=== PATIENT | female | born 1990 | race Caucasian/White ===

== ENCOUNTER 2017-11-07 14:34 | Emergency (ER) | payer BC, OTHER ==
[2017-11-07 15:18] LABS: #Basophils 0.1 thou/uL (0.0-0.2); #Eosinphils 0.2 thou/uL (0.0-0.7); #Lymphocytes 2.1 thou/uL (1.20-3.40); #Monocytes 0.4 thou/uL (0.11-0.59); #Neutrophils 4.8 thou/uL (1.40-6.50); %Basophils 1.3 % (0.0-1.0); %Eosinophils 2.5 % (0.0-10.0); %Lymphocytes 27.4 % (21.0-51.0); %Monocytes 5.2 % (0.0-10.0); %Neutrophils 63.6 % (42.0-75.0); Hemoglobin 13.9 g/dL (12.0-16.0); Mean Corpuscular HGB CONC 33.5 g/dL (32.0-36.0); Mean Corpuscular Hemoglobin 31.5 pg (27.0-31.0); Mean Corpuscular Volume 94.1 fl (81.0-99.0); Mean Platelet Volume 7.5 fL (7.4-10.4); Platelet Count 316 thou/uL (130-400); RBC Distribution Width 11.4 % (11.5-14.5); Red Blood Cell (RBC) Count 4.41 mill/uL (4.20-5.40); White Blood Cell (WBC) Count 7.5 thou/uL (4.8-10.8)
[2017-11-07 15:39] LABS: ALT (SGPT) 9 U/L (8-55); AST (SGOT) 16 U/L (5-34); Albumin 4.2 g/dL (3.5-5.0); Alkaline Phosphatase 55 U/L (40-150); Anion Gap 11 mmol/L (10-20); BUN (Urea Nitrogen) 9 mg/dL (7.0-18.7); Bilirubin, Total 0.4 mg/dL (0.2-1.2); Calc. Creatinine Clearance 0 mL/min (70-130); Calcium 9.5 mg/dL (7.8-10.44); Carbon Dioxide 26 mmol/L (22-29); Chloride 105 mmol/L (98-107); Estimated GFR-MDRD 85; Globulin 2.9 g/dL (2.4-3.5); Glucose 99 mg/dL (70-105); Potassium 4.3 mmol/L (3.5-5.1); Protein, Total 7.1 g/dL (6.0-8.3); Sodium 138 mmol/L (136-145)
--- NOTE | 2017-11-07 18:49 | ULT ---
LEFT LOWER EXTREMITY VENOUS DUPLEX: Technique: Ultrasound doppler study is performed in the veins of the left lower extremity. Color dopp ler, spectral analysis, and compression study is performed on the common femoral, profunda femoral, s uperficial femoral, popliteal, greater saphenous and posterior tibial veins. History: Left lower extremity pain and edema. Pain worse in the calf. FINDINGS: Deep veins show normal compression and blood flow. No evidence of DVT. IMPRESSION: No evidence of left lower extremity DVT. POS: ABEBA
--- NOTE | 2017-11-07 20:09 | CT ---
CT SCAN LEFT LOWER EXTREMITY: Technique: Multiple axial tomograms were obtained through the left lower extremity from knee to dista l tibia and fibula with multiplanar reconstruction. Exam was performed without IV contrast. History: Left calf pain and swelling. Question foreign body. FINDINGS: No evidence of soft tissue radiopaque foreign body identified. There is stranding and abnormal densit y in the subcutaneous tissues of the lateral mid-calf region which is the site of patient's pain. Thi s could represent inflammatory process or infection. No evidence of focal abscess or fluid collection . No osseous abnormality identified. IMPRESSION: Inflammatory stranding and low attenuation in the subcutaneous adipose tissue lateral midcalf region may represent inflammatory process. No abscess. No evidence of foreign body identified. POS: ABEBA
== END 2017-11-07 19:30 | disposition home or self-care (01) ==
LOC: ERS 14:34
DX: L08.9 Local infection of the skin and subcutaneous tissue, unspecified (principal); M79.662 Pain in left lower leg; F41.9 Anxiety disorder, unspecified; F32.9 Major depressive disorder, single episode, unspecified
CPT/HCPCS: 36415; 80053; 85025; 85652; 86140

== ENCOUNTER 2019-11-26 07:25 | Inpatient (IN) | payer OTHER ==
[2019-11-29] MEDS ORDERED: Bupivacaine PF 0.5% 30 ML VIAL ONE (14:28)
[2019-11-29 19:57] VITALS: BMI 18.2
[2019-11-29] MEDS ORDERED: Acetaminophen 500 MG TAB PO PRN (20:41)
[2019-11-29] MEDS ORDERED: Promethazine HCl 25 MG/ML VIAL IM PRN (20:41)
[2019-11-29] MEDS ORDERED: Ibuprofen 800 MG TAB PO PRN (20:41)
[2019-11-29] MEDS ORDERED: Diphenoxylate HCl/Atropine Tablet PO PRN (20:41)
[2019-11-29] MEDS ORDERED: Lidocaine 1% (PF) 30 ML VIAL SC PRN (20:41)
[2019-11-29] MEDS ORDERED: Methylergonovine 0.2 MG/ML VIAL IM PRN (20:41)
[2019-11-29] MEDS ORDERED: NS / Oxytocin 40 units/1000ml 1,000 ML IV PRN (20:41)
[2019-11-29] MEDS ORDERED: HYDROcodone/Acetaminophen 5/325 mg Tablet PO PRN (20:41)
[2019-11-29] MEDS ORDERED: Carboprost 250 MCG/ML AMP IM PRN (20:41)
[2019-11-29] MEDS ORDERED: Ondansetron PF 4 MG/2 ML Vial IVP PRN (20:41)
[2019-11-29] MEDS ORDERED: Zolpidem Tartrate 5 MG TAB PO PRN (20:41)
[2019-11-29] MEDS ORDERED: hydrALAZINE 20 MG/ML VIAL SLOW IVP PRN (20:41)
[2019-11-29] MEDS ORDERED: Misoprostol 200 MCG TAB PR PRN (20:41)
[2019-11-29 21:07] LABS: Hemoglobin 12.8 g/dL (12.0-16.0); Mean Corpuscular HGB CONC 35.3 g/dL (32.0-36.0); Mean Corpuscular Volume 90.7 fL (78.0-98.0); Mean Platelet Volume 8.2 fL (7.4-10.4); Platelet Count 290 thou/uL (130-400); RBC Distribution Width 11.9 % (11.5-14.5); Red Blood Cell (RBC) Count 4.01 mill/uL (4.20-5.40); White Blood Cell (WBC) Count 10.7 thou/uL (4.8-10.8)
[2019-11-29 21:43] LABS: Syphilis Antibody Nonreactive (Nonreactive); Syphilis Antibody Index 0.04 S/CO (<1.00 Non-Reactive)
[2019-11-29 23:20] LABS: HBSAg Index 0.24 S/CO (0-0.99); Hep B Surf Ag Non-Reactive S/CO (NonReactive)
--- NOTE | 2019-11-30 08:15 | PDOC.LDHP ---
Labor and Delivery H&P Chief complaint: scheduled induction HPI: 29yo at 40w4d by LMP here for elective IOL. Had cook balloon in overnight. Current gestational age (weeks): 40 Due date: 11/26/19 Dating criteria: last menstrual period Grav: 1 Para: 0 Current complications: none Abnormal US findings: No Past Medical History: denies Current medications: pre-katherine vitamins Previous surgical history: appendectomy Allergies/Adverse Reactions: Allergies Allergy/AdvReac Type Severity Reaction Status Date / Time No Known Allergies Allergy Verified 11/29/19 19:48 Social history: none - Physical Exam Vital signs reviewed and normal: yes General: NAD Heart: RRR Lungs: CTAB Abdomen: gravid Extremeties: no edema FHT: category 1 [place] contractions every: 3-5min - Vaginal Exam cm dilated: 6 Effacement: 75% Station: -2 (cook balloon outm arom clear) - OB Labs Blood type: A RH: positive Antibody Screen: negative HIV: negative RPR: negative HEPSAg: negative 1 hour GCT: negative GBS: negative Urine drug screen: negative Rubella: immune - Assessment L&D Assessment: elective induction at term - Plan Plan: admit to L&D, cervical ripening (s/p cook), labor augmentation if indicated, informed consent obtained, anesthesia consult for pain management ( prn)
--- NOTE | 2019-11-30 13:28 | PDOC.LDPN ---
Labor & Delivery Progress Note - Subjective Subjective: painful contractions - Objective Vital signs reviewed and normal: yes General: NAD, breathing through contractions Uterine fundus: non tender Dilation: 6 Effacement: 75% Station: -2 FHT: category 1 [place] contractions every: 2-3min Plan: continue plan of care -: pt desires more time to go into labor without pitocin, will recheck SVE in 2-3 hours
[2019-11-30] MEDS ORDERED: NS w/ Oxytocin 10 units 500 ML ONE (17:29)
[2019-11-30] MEDS ORDERED: Butorphanol Tartrate 1 MG/ML VIAL ONE (17:29)
--- NOTE | 2019-11-30 18:33 | PDOC.LDPN ---
Labor & Delivery Progress Note - Subjective Subjective: painful contractions, vaginal pressure - Objective Vital signs reviewed and normal: yes General: NAD Uterine fundus: non tender Dilation: 7 Effacement: 75% Station: -1 FHT: category 1 [place] contractions every: 3-5min -: Rec pitocin and or epidural. Pt agreeable to pitocin since not changing significantly.
[2019-11-30] MEDS ORDERED: Fentanyl 4 mcg/Bup 0.1% Cadd 100 ML ONE (19:11)
[2019-11-30] MEDS ORDERED: Promethazine HCl 25 MG/ML VIAL IM PRN (20:03)
[2019-11-30] MEDS ORDERED: Naloxone HCl 0.4 mg/ml Vial IVP PRN ×2 (20:03)
[2019-11-30] MEDS ORDERED: Ondansetron PF 4 MG/2 ML Vial IVP PRN (20:03)
[2019-11-30] MEDS ORDERED: EPHEDRINE 25 MG/5 ML SYRINGE SLOW IVP PRN (20:03)
[2019-11-30] MEDS ORDERED: Lactated Ringer's 500 ML IV PRN (20:03)
[2019-11-30] MEDS ORDERED: diphenhydrAMINE 50 MG/ML VIAL IVP PRN (20:03)
[2019-11-30] MEDS ORDERED: Acetaminophen 325 MG TAB PO PRN (20:03)
[2019-11-30] MEDS ORDERED: Communication Order-Pharmacy FS SCH (20:15)
[2019-11-30] MEDS ORDERED: Fentanyl 4 mcg/Bupivacaine 0.1% Cassette 100 ML EPIDURAL SCH (20:15)
[2019-11-30] MEDS: NS / Oxytocin 40 units/1000ml 1,000 ML ONE (23:50)
--- NOTE | 2019-12-01 00:07 | PDOC.OPDEL ---
OB Operative/Delivery Note Delivery Dr/Surgeon: Brittney Assist: n/a Pre-Delivery Diagnosis: elective induction Procedure/Post Delivery Dx: spontaneous vaginal delivery Weeks gestation: 40 Anesthesia: epidural - Findings A Sex: female Weight: 6 lb 11 oz - 1 min: 6 - 5 min: 7 - Additional Findings/Plan Placenta delivered: spontaneous Repaired Obstetrical Laceration: 1st degree Estimated blood loss: 300 Post delivery plan: routine recovery
[2019-12-01] MEDS ORDERED: Milk Of Magnesia 30 ML UDCUP PO PRN (01:55)
[2019-12-01] MEDS ORDERED: Ondansetron PF 4 MG/2 ML Vial IVP PRN (01:55)
[2019-12-01] MEDS ORDERED: Benzocaine-Menthol 82.5 ML CAN TOP PRN (01:55)
[2019-12-01] MEDS ORDERED: Lanolin Ointment 7 GM TUBE TOP PRN (01:55)
[2019-12-01] MEDS ORDERED: hydrALAZINE 20 MG/ML VIAL SLOW IVP PRN (01:55)
[2019-12-01] MEDS ORDERED: diphenhydrAMINE 25 MG CAP PO PRN (01:55)
[2019-12-01] MEDS ORDERED: Promethazine HCl 25 MG/ML VIAL IM PRN (01:55)
[2019-12-01] MEDS ORDERED: HYDROcodone/Acetaminophen 5/325 mg Tablet PO PRN ×2 (01:55)
[2019-12-01] MEDS ORDERED: Bisacodyl 10 MG SUPP PR PRN (01:55)
[2019-12-01] MEDS ORDERED: Preparation H Ointment 57 gram tube RC PRN (01:55)
[2019-12-01] MEDS ORDERED: NS / Oxytocin 40 units/1000ml 1,000 ML IV SCH (01:55)
[2019-12-01] MEDS: NS / Oxytocin 40 units/1000ml 1,000 ML ONE (01:56)
[2019-12-01] MEDS: Ibuprofen 800 MG TAB PO SCH ×3 (05:42→21:14)
--- NOTE | 2019-12-01 07:40 | PDOC.PP ---
Post Progress Note Post Day #: 1 Subjective: Patient doing well. No significant overnight events. Patient states lochia less than period currently. She reports feeling tired, but otherwise doing well. PO intake tolerated: yes Flatus: yes Ambulation: yes Vital Signs (12 hours) Temp Pulse Resp BP Pulse Ox 12/01/19 04:11 98.8 F 87 14 131/66 98 12/01/19 03:00 98.7 F 81 14 123/61 99 Weight Weight 54.431 kg - Physical Examination General: NAD Cardiovascular: RRR Respiratory: non-labored breathing Abdominal: + bowel sounds, lochia (little less than period), no distention, appropriately TTP Fundus firm & at: below umbilicus Skin: no rash Neurological: no gross focal deficits Psychiatric: A&Ox3, normal affect Result Diagrams: 11/29/19 20:44 Additional Labs: Post Labs Blood Type A POSITIVE 11/29/19 21:28 Hep Bs Antigen Non-Reactive S/CO (NonReactive) 11/29/19 20:44 (1) Term delivered Code(s): O80 - ENCOUNTER FOR FULL-TERM UNCOMPLICATED DELIVERY Status: Acute - Assessment/Plan Routine PP care - PP day #1 s/p - Meeting PP milestones - Rh positive - Lochia minimal - Continue routine care Dispo: Plan for possible d/c home tomorrow. Addendum - Attending - Attending Attestation Date/Time: 12/01/19 [id number] I personally evaluated the patient and discussed the management with Dr. Elaine. I agree with the History, Examination, Assessment and Plan documented above.
[2019-12-01] MEDS ORDERED: Adacel (T-DAP) 0.5 ML SYRINGE IM ONE (09:00)
[2019-12-01] MEDS: Docusate Calcium (SURFAK) 240 MG CAP PO SCH ×2 (09:36→21:13)
[2019-12-01] MEDS: Prenatal Vitamin 1 TAB PO SCH (09:36)
[2019-12-01] MEDS: Ferrous Sulfate 325 MG TAB PO SCH ×2 (09:37→17:11)
--- NOTE | 2019-12-02 03:45 | PDOC.PP ---
Post Progress Note Post Day #: 2 Subjective: Pt reports pain well controlled with ibuprofen. She is ambulating, tolerating PO. Reports lochia about like a period. PO intake tolerated: yes Flatus: yes Ambulation: yes Vital Signs (12 hours) Temp Pulse Resp BP Pulse Ox 12/01/19 20:00 98.0 F 75 16 121/74 97 12/01/19 16:25 98.1 F 82 16 132/78 99 Weight Weight 54.431 kg - Physical Examination General: NAD Cardiovascular: no m/r/g, RRR Respiratory: non-labored breathing Abdominal: lochia (moderate), no distention, appropriately TTP Fundus firm & at: 2cm below umbilicus Neurological: no gross focal deficits Psychiatric: A&Ox3, normal affect Result Diagrams: 11/29/19 20:44 Additional Labs: Post Labs Blood Type A POSITIVE 11/29/19 21:28 Hep Bs Antigen Non-Reactive S/CO (NonReactive) 11/29/19 20:44 (1) Term delivered Code(s): O80 - ENCOUNTER FOR FULL-TERM UNCOMPLICATED DELIVERY Status: Acute - Assessment/Plan Routine PP care - PP day #2 s/p - Meeting PP milestones - Rh positive - Lochia minimal - Cont PNV - Ibuprofen for pain control - Continue routine care d/c home today Discussed plan with Dr. Mustafa. Addendum - Attending - Attending Attestation Date/Time: 12/02/19 4412 I personally evaluated the patient and discussed the management with Dr. Chatterjee. I agree with the History, Examination, Assessment and Plan documented above.
[2019-12-02] MEDS: Ibuprofen 800 MG TAB PO SCH ×2 (06:13→14:16)
[2019-12-02] MEDS: Ferrous Sulfate 325 MG TAB PO SCH (07:48)
[2019-12-02] MEDS: Prenatal Vitamin 1 TAB PO SCH (08:36)
[2019-12-02] MEDS: Docusate Calcium (SURFAK) 240 MG CAP PO SCH (08:36)
[2019-12-02 09:11] VITALS: BP 112/60; TEMP 98
== END 2019-12-02 16:15 | disposition home or self-care (01) | DRG 807 ==
LOC: EDSTATUS 16:42 → L&D 11-29 19:02 → 3SW 12-01 03:16
PROVIDERS: ADMIT Student in an Organized Health Care Education/Training Program; ATTEND Student in an Organized Health Care Education/Training Program
PROC: 10E0XZZ Delivery of Products of Conception, External Approach (ICD-10-PCS; principal; 2019-11-30)
PROC: 0HQ9XZZ Repair Perineum Skin, External Approach (ICD-10-PCS; 2019-11-30)
DX: O48.0 Post-term pregnancy (principal); Z37.0 Single live birth; Z3A.40 40 weeks gestation of pregnancy; O70.0 First degree perineal laceration during delivery
CPT/HCPCS: 36415; 51702; 85027; 86780; 86850; 86900; 86901; 87340; 96372; 99282; C1726; J0595; J2270; J2405; J2550; J2590; S0020

== ENCOUNTER 2019-11-26 19:03 | Day surgery (SDC) | payer OTHER ==
[2019-11-26] MEDS ORDERED: hydrALAZINE 20 MG/ML VIAL SLOW IVP PRN (22:53)
[2019-11-26] MEDS ORDERED: Promethazine HCl 25 MG/ML VIAL IM PRN (22:54)
[2019-11-26] MEDS ORDERED: Morphine 10 MG/ML VIAL IM SCH (23:00)
[2019-11-26] MEDS: Morphine 4 MG/ML VIAL ONE (23:05)
--- NOTE | 2019-11-26 23:32 | PRG ---
DATE OF SERVICE: 11/26/2019 PRIMARY OB: Danni Lugo MD CHIEF COMPLAINT: Abdominal pains. HISTORY OF PRESENT ILLNESS: The patient is a 29-year-old G1, P0 female with an intrauterine at 40 weeks and 0 days, presenting to the Labor and Delivery with history of uterine contractions since 8:30 this morning. The patient reports that they have been painful and they began after Dr. Lugo swept her membranes. She reports that she was 2 cm, 70% effaced in the office today. She denies vaginal bleeding or leakage of fluid. She denies any recent illness, fever, fall, headache, chest pain, or shortness of breath. Nausea and vomiting have been more frequent in the last few days and was given a prescription of Zofran this morning. She denies diarrhea, constipation, any new rashes, hip problems, knee problems, or muscle weakness. Denies vaginal bleeding, leakage of fluid, urinary urgency, or frequency. PAST MEDICAL HISTORY: Negative. PAST SURGICAL HISTORY: She has had tonsillectomy, appendectomy. She has had surgery on her right ring finger, left foot and a surgery on a fissure in her colon. ALLERGIES: NO KNOWN DRUG ALLERGIES. MEDICATIONS: vitamins. Zofran, she was prescribed today. SOCIAL HISTORY: The patient denies any drug or tobacco use. She does report recent alcohol consumption and states she had some wine. OB LABS: Blood type is A positive. Antibody screen is negative. VDRL is nonreactive in the first trimester. Hepatitis B surface antigen is negative in the first trimester. HIV is nonreactive in the first trimester. GC and chlamydia both negative. She is rubella immune. Her diabetes screen is 118. REVIEW OF SYSTEMS: Per HPI. PHYSICAL EXAMINATION: VITAL SIGNS: Blood pressure is 133/86, heart rate of 97, respiratory rate 18. GENERAL: She appears to be in no acute distress. She is alert, oriented, cooperative, and pleasant to interact with. HEAD: Normocephalic, atraumatic. The patient has declined any physical touch. Therefore, the lung exam, heart exam, abdominal exam has been deferred and declined. CERVICAL: Per nursing staff, she is 2, 50, -2 station and is unchanged after 2 hours. heart tracing shows the fetus with a baseline 120s with moderate long-term variability, positive 15 x 15 accelerations. Prior to walking baseline, appeared to be in the 140s. Contractions are occurring every 3 to 4 minutes. ASSESSMENT AND PLAN: The patient is a 29-year-old with an intrauterine at 40 weeks, here for contractions at term, but no evidence of labor. Fetus has a category 1 tracing and reactive NST. The patient is requesting pain medication to help assist with managing her pain at home. She will be given 8 mg of morphine IM and 12.5 mg of Phenergan IM. She has Zofran also at home to take as needed. The patient will be discharged to home. Fetus has a reactive category 1 tracing, reactive NST, and the patient reports she has an appointment on for induction of labor if she were not to return prior to that in labor. Job ID: [id number]
== END 2019-11-26 23:17 | disposition home or self-care (01) ==
LOC: L&D/OP 19:03
PROVIDERS: ATTEND Student in an Organized Health Care Education/Training Program
DX: O47.1 False labor at or after 37 completed weeks of gestation (principal); O48.0 Post-term pregnancy; Z3A.40 40 weeks gestation of pregnancy
CPT/HCPCS: 99282; J2270; J2550

== ENCOUNTER 2024-10-25 10:14 | Outpatient (CLI) | payer OTHER | END 2024-10-25 10:15 | disposition home or self-care (01) | LOC: SCSRAD 10:14 | PROVIDERS: ATTEND Family Medicine | DX: M25.562 Pain in left knee (principal) ==